=== PATIENT | male | born 1965 | race Caucasian/White ===

== ENCOUNTER 2025-08-17 21:16 | Emergency (ER) | payer BC, SELFPAY ==
[2025-08-17] VITALS (10 sets, daily range): BP systolic 72–141; BP diastolic 48–109
[2025-08-17 22:03] LABS: ALT (SGPT) 27 U/L (0-50); AST (SGOT) 36 U/L (17-59); Albumin 3.1 g/dl (3.5-5.0); Alkaline Phosphatase 79 U/L (38-126); Blood Urea Nitrogen 54 mg/dl (9-20); Carbon Dioxide 21 mmol/L (22-30); Chloride 99 mmol/L (98-107); Estimated Creatinine Clearance 60 ml/min; Glucose 225 mg/dl (70-99); Lipase 24 U/L (23-300); Potassium 4.8 mmol/L (3.5-5.1); Sodium 129 mmol/L (135-145); Total Protein 5.3 g/dl (6.3-8.2); eGFR 57.90
[2025-08-17] MEDS: NSS 1000 IV (22:05)
[2025-08-17 22:28] LABS: Calcium 9.0 mg/dl (8.4-10.2); Hematocrit 17.6 % (39.0-52.0); Hemoglobin 5.8 g/dL (13.0-18.0); Mean Corp Hgb Conc. 33.0 g/dL (33.0-37.0); Mean Corpuscular Volume 87.6 fL (80.0-94.0); Nucleated Red Blood Cells % 0 % (-); Platelet Count 263 10^3/uL (130-400); Red Cell Dist. Width 14.6 % (11.5-14.5)
[2025-08-17 22:50] LABS: Acetaminophen 11 ug/ml (10-30)
--- NOTE | 2025-08-17 23:11 | ED.GENMED ---
History of Present Illness
General
Chief Complaint: Weakness
Source: patient and family
Time Seen by Provider: 08/17/25 21:57
History of Present Illness
History of Present Illness:
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 Patient's brother states he has been dealing with the jaw cancer and has some spread of it. He has a known history of hemophilia B. Brother
states he has had some bleeding in the past at outside hospitals. He has not had to have factor placed for emergency bleeding in some time. The patient reports nausea. Presents with profuse rectal bleeding. The patient's brother states that he
has been taking a lot of pain medications due to his jaw pain.
Past History
Past History
ED Past Medical History: Other (Jaw cancer, hemophilia B)
Phy Exam
Physical Exam
Physical Exam:
CONSTITUTIONAL Patient alert and oriented to person, place and time. Ill-appearing. Pale. Blood pressure 86/53
HEAD atraumatic,
EYES eyelids normal to inspection, Extraocular muscles intact, Conjunctiva pale
NECK normal range of motion, Trachea midline, no jugular venous distention.
RESPIRATORY CHEST No respiratory distress noted, Chest expansion equal, Bilateral breath sounds clear.
CARDIOVASCULAR regular rate and rhythm, Heart sounds normal.
ABDOMEN G-tube noted, no distention, maroon-colored stool by rectum. Significant amount of blood per rectum noted, covering
UPPER EXTREMITY range of motion normal, Motor strength normal, no cyanosis, no edema.
LOWER EXTREMITY range of motion normal, Motor strength normal, no cyanosis, no edema.
NEURO Speech normal, No focal motor deficits, Peterson coma scale 15, Memory normal, Cranial Nerves intact to screening exam.
SKIN skin warm, dry, and normal in color.
Course
Orders/Labs/Results
Orders:
Orders
08/17/25 21:36
Complete Blood Count/With Diff Urgent
Comprehensive Metabolic Panel Urgent
Lipase Urgent
08/17/25 21:57
* Blood Bank Products Routine
Blood Bank Products: *Packed RBC Leuko (PRBC's
Quantity: 2
Transfuse Today: Yes
Reason: Bleeding
IV Insert/Care/Rem.- Treatment PRN
0.9% Sodium Chloride 1000 ml [Nss] 1,000 ml IV BOLUS
08/17/25 22:02
Type+Screen Urgent
08/17/25 22:24
Tylenol [Acetaminophen] Urgent
08/17/25 22:50
Factor IX,Anti-Hemophilic [Benefix (Factor IX)] 1,000 units Syringe [Syringe Non-Pump] 5 ml IV ONCE@2250,2251
08/17/25 22:53
CT Abd/pelvis Angio W/wo Iv Urgent
Comment:
Reason For Exam: gi bleed
IV Insert/Care/Rem.- Treatment PRN
08/17/25 22:58
Pantoprazole [Protonix IV] 80 mg IV NOW STA
08/17/25 23:03
Ondansetron Injectable [Zofran] 4 mg IV NOW STA
08/17/25 23:08
Tranexamic Acid 1000 mg/100 ml [Tranexamic Acid] 1,000 mg in 100 ml IV ONCE
Abnormal Lab Results
08/17/25 08/17/25
21:36 22:02
RBC 2.01 L 10^6/uL
(4.70-6.10)
Hgb 5.8 L* g/dL
(13.0-18.0)
Hct 17.6 L* %
(39.0-52.0)
RDW 14.6 H %
(11.5-14.5)
Abs Immat Gran (auto) 0.1 H 10^3/uL
(0-0.05)
Absolute Lymphs (auto) 0.3 L 10^3/uL
(1.2-3.4)
Immature Gran % 1.0 H %
(0-0.5)
Neutrophils % 89.0 H %
(42.2-75.2)
Lymphocytes % 3.7 L %
(20.5-51.1)
Sodium 129 L mmol/L
(135-145)
Carbon Dioxide 21 L mmol/L
(22-30)
BUN 54 H mg/dl
(9-20)
Creatinine 1.4 H mg/dL
(0.7-1.3)
Glucose 225 H mg/dl
(70-99)
Total Protein 5.3 L g/dl
(6.3-8.2)
Albumin 3.1 L g/dl
(3.5-5.0)
Crossmatch IS Only See Detail
08/17/25 21:36
08/17/25 21:36
Vital Signs
Initial and Last Documented VS:
Initial Vital Signs
Temp Pulse Resp Pulse Ox
96.9 F L 88 18 98
08/17/25 21:20 08/17/25 21:20 08/17/25 21:20 08/17/25 21:20
Last Documented Vital Signs
Temp Pulse Resp BP Pulse Ox
97.1 F 87 20 110/74 99
08/18/25 00:26 08/18/25 01:00 08/18/25 01:00 08/18/25 01:00 08/18/25 00:31
MDM/Problems Addressed
Differential Diagnosis Includes:
Diverticular bleed, brisk upper GI bleed, factor IX deficiency, severe anemia, peptic ulcer disease
MDM/Problems Addressed:
Acute severe GI bleeding, acute severe factor IX deficiency, hemorrhagic shock, severe anemia
Acute Exacerbation and/or Progression of Chronic Illness: Other (Hemophilia B)
*Pulse Oximetry
SaO2: 100
Oxygen Mode of Delivery: Room air
Patient hypoxic: no
*Radiation Protection Engineer Interpretation
Rate: normal
Interpretation: normal
Rhythm: sinus
*Critical Care Note
Total Time (30-74mins, 75-104mins- exclusive of procedures): 80 minutes
Data Reviewed
Source: patient and family
Prescriptions/Medications Considered But Not Given:
Consider Kcentra but ideally given factor IX
Patient Management
Discussion with other providers: Elderly Caregiver (Case discussed with hematology who agrees with management) and Other (Case discussed with telegraph lineman at [facility] who also recommends TXA)
Update Note
Update Note:
Hemophiliac with brisk rectal bleeding. Blood pressure improving with fluids and blood now being home. Given factor IX. However, no further factor IX available. Can give Kcentra if needed but will proceed with CTA of the abdomen for further
information but anticipate transfer to [facility] for further factor IX replacement and management. They can also measure factor IX to allow targeted replacement. Continue to monitor closely
0005 case discussed with radiology who does not see any active hemorrhage. Blood pressure now 102 systolic and receiving a second unit of IV packed red blood cells. IV Protonix also given. Call back to [facility].
Blood pressure remains stable. Continues to have intermittent episodes of blood per rectum. Transferred to flight team with blood pressure 117 systolic
ED Attending Note
-
Portions of this chart may have been created with voice recognition software.� Occasional wrong word or��sound alike� substitutions may have occurred due to the inherent limitations of voice recognition software.
Discharge Plan
Departure
Patient Disposition: Acute Care Hospital
Date of Disposition: 08/17/25
Time of Disposition: 23:15
Discharge Problem:
Hemorrhagic shock, Anemia, GI bleed
Hospital Transfer
Other hospital: [facility]
I certify that the patient requires transfer: Yes
Discussed case with accepting physician: Ashli
Reason for transfer: higher level of care
Interventions
Interventions:
*General Assessment Last Done: 08/17/25 21:27
*Neglect/Abuse Screening Last Done: 08/17/25 21:27
*ED COVID-19 Vaccine History Last Done: 08/17/25 21:27
*ED Influenza Vaccine History Last Done: 08/17/25 21:27
[facility] Fall Risk Assessment Tool Last Done: 08/17/25 21:26
*Risk Screen - Suicide (C-SSRS) Last Done: 08/17/25 21:27
*Nursing Disposition Last Done: 08/18/25 01:28
ED- Cardiac Assessment Last Done: 08/17/25 21:31
ED- Neurological Assessment Last Done: 08/17/25 21:31
ED- Pulmonary Assessment Last Done: 08/17/25 21:31
Discharge Date and Time
Discharge Date/Time: 08/18/25 01:29
Print Language: KITTITIAN
[2025-08-17] MEDS: ZOFRAN 4 MG IV (23:14)
[2025-08-17] MEDS: PROTONIX IV 80 MG IV (23:14)
[2025-08-18] VITALS (7 sets, daily range): BP systolic 102–120; BP diastolic 64–84
[2025-08-18] MEDS: TRANEXAMIC ACID 100 IV (00:14)
== END 2025-08-18 01:29 | disposition short-term general hospital (02) ==
LOC: EMR 21:16
PROVIDERS: EMERGENCY PHYSICIAN Emergency Medicine
DX: K92.2 Gastrointestinal hemorrhage, unspecified (principal); R57.8 Other shock; D64.9 Anemia, unspecified; D67 Hereditary factor IX deficiency; C76.0 Malignant neoplasm of head, face and neck; Z93.1 Gastrostomy status
CPT/HCPCS: 99291; 99292; 96374; 96375 ×2; 96361; 36430; 74174; 80053; 80143; 83690; 85025; 86850; 86900; 86901; 86920; J7195; P9016; Q9967